=== PATIENT | female | born 1940 | race Two or more races ===

== ENCOUNTER 2023-09-08 11:06 | Emergency (ER) | payer OTHER ==
[~2023-09-08] VITALS: Ht 152.4 cm; Wt 45.4 kg
[2023-09-08] MEDS ORDERED: PROTONIX20 MG (11:57)
[2023-09-08] MEDS ORDERED: CHILDREN'S ASPI81 MG (11:58)
[2023-09-08] MEDS ORDERED: TOPROL XL25 M1 (11:58)
[2023-09-08] MEDS ORDERED: LOTREL 5-20 MG1 CAP (11:58)
[2023-09-08] MEDS ORDERED: ANTIVERT25 M2 (11:58)
[2023-09-08] MEDS ORDERED: ZOCOR20 MG (11:58)
[2023-09-08 15:44] LABS: HEMATOCRIT 41.2 % (36.0-45.00); HEMOGLOBIN 13.6 g/dL (12.0-15.00); MEAN CELL VOLUME 89.6 fL (80.00-100.00); MEAN CORPUSCULAR HEMOGLOBIN 29.5 pg (27.00-32.0); PLATELET COUNT 188 K/uL (150-450); RED CELL DISTRIBUTION WIDTH 14.4 % (11.5-14.5)
[2023-09-08 16:21] LABS: ALBUMIN 4.2 gm/dL (3.4-5.0); BILIRUBIN TOTAL 0.65 mg/dL (0.3-1.2); CALCIUM 10.9 mg/dL (8.5-10.1); CREATININE SERUM 0.83 mg/dL (0.55-1.02); GFR 65.34; GLOBULINA 3.7 G/DL (2.4-3.5); POTASSIUM 3.98 mEq/L (3.5-5.1); TOTAL PROTEIN 7.9 gm/dL (6.4-8.2)
[2023-09-08 21:25] LABS: PH,URINE 5.5 (5.0-8.0); URINE APPEARANCE Clear; URINE BILIRRUBIN Negative (NEGATIVE); URINE BLOOD Negative; URINE COLOR Yellow; URINE GLUCOSE Negative (NEGATIVE); URINE LEUKOCYTE Negative; URINE NITRATE Negative; URINE PROTEIN Negative (NEGATIVE); URINE UROBILINOGEN 0.2 E.U./dl
[2023-09-08 21:29] LABS: URINE BACTERIA 11.3 uL (0.0-1933); URINE EPITHELIAL CELLS 2.4 uL (0.0-38.8)
[2023-09-08] MEDS ORDERED: COLACE100 MG PO (22:11)
== END 2023-09-08 22:19 ==
LOC: ER 11:06
PROVIDERS: Nurse Practitioner Family
DX: K59.00 Constipation, unspecified (principal); K57.32 Diverticulitis of large intestine without perforation or abscess without bleeding; I10 Essential (primary) hypertension; R42 Dizziness and giddiness; Z88.2 Allergy status to sulfonamides
CPT/HCPCS: 36415; 74177; 96365; 96366; 99284; J7030; Q9965